=== PATIENT | female | born 1960 | race Caucasian/White ===

== ENCOUNTER 2023-09-16 08:34 | Day surgery (SDC) | payer BC ==
[2023-09-16] VITALS (12 sets, daily range): BP systolic 105–164; BP diastolic 41–78; PULSE 15–81; RESP 14–18; TEMP 98; O2SAT 94–99
[~2023-09-16] VITALS: Ht 157.5 cm; Wt 69.7 kg
[2023-09-16] MEDS ORDERED: ASPI81TA52 PO (09:12)
[2023-09-16] MEDS ORDERED: LOSA50TA64 PO (09:12)
[2023-09-16] MEDS ORDERED: METF-900 PO (09:12)
[2023-09-16] MEDS ORDERED: NAS0.025NS BOTHNARES (09:12)
[2023-09-16] MEDS ORDERED: PROP120C2 PO (09:12)
[2023-09-16] MEDS ORDERED: ALBU18HF2 INH (09:12)
[2023-09-16] MEDS ORDERED: ATOR10TA70 PO (09:12)
[2023-09-16] MEDS ORDERED: LIDOcaine 1% 30ml preserv. free vial ONE (09:53)
[2023-09-16] MEDS ORDERED: fentaNYL/PF 50MCG/1 ML 2ML syringe ONE (09:55)
[2023-09-16] MEDS ORDERED: midazolam 1 mg/ML 2ml injection ONE (09:56)
[2023-09-16] MEDS ORDERED: gelatin sponge, absorbable (Gelfoam 12-7MM) sponge TP ONE (09:59)
[2023-09-16 10:01] LABS: BASOPHILS # (AUTO) 0.1 X10'3 (0-0.2); BASOPHILS % (AUTO) 0.9 % (0-1); EOSINOPHILS # (AUTO) 0.2 X10'3 (0-0.9); HEMATOCRIT 37.1 % (35.0-45.0); HEMOGLOBIN 12.3 g/dl (12.0-16.0); LYMPHOCYTES # (AUTO) 2.5 X10'3 (1.1-4.8); LYMPHOCYTES % (AUTO) 32.3 % (21-51); MEAN CORPUSCULAR HEMOGLOBIN 30.6 PG (27.0-31.0); MEAN CORPUSCULAR HGB CONC 33.2 g/dL (33.0-36.5); MEAN CORPUSCULAR VOLUME 92.1 FL (78-98); MEAN PLATELET VOLUME 8.3 FL (7.4-10.4); MONOCYTES # (AUTO) 0.6 X10'3 (0-0.9); MONOCYTES % (AUTO) 7.5 % (2-12); NEUTROPHILS # (AUTO) 4.4 X10'3 (1.8-7.7); NEUTROPHILS % (AUTO) 56.3 % (42-75); PLATELET COUNT 235 X10'3 (140-440); RED BLOOD COUNT 4.03 X10'6 (4.20-5.60); RED CELL DISTRIBUTION WIDTH 13.5 % (11.5-14.5); WHITE BLOOD COUNT 7.8 X10'3 (4.5-11.0)
[2023-09-16 10:10] LABS: INR 0.9 INR; PROTHROMBIN TIME 10.1 SECONDS (9.0-12.0)
== END 2023-09-16 14:03 | disposition home or self-care (01) ==
LOC: SSTAY O 08:34
PROVIDERS: ATTEND Radiology Vascular & Interventional Radiology
DX: R91.1 Solitary pulmonary nodule (principal); C34.31 Malignant neoplasm of lower lobe, right bronchus or lung; Z79.84 Long term (current) use of oral hypoglycemic drugs; Z79.82 Long term (current) use of aspirin; Z79.899 Other long term (current) drug therapy; Z88.1 Allergy status to other antibiotic agents; Z88.8 Allergy status to other drugs, medicaments and biological substances; Z79.01 Long term (current) use of anticoagulants
CPT/HCPCS: 10009; 32408; 36415; 71045; 85025; 85610; A6258; J2250; J3010; J3490; J7030; 77012; A4615

== ENCOUNTER 2024-01-28 07:53 | Outpatient (CLI) | payer BC ==
[~2024-01-28] VITALS: Ht 157.5 cm; Wt 72.6 kg
[2024-01-28] VITALS (8 sets, daily range): BP systolic 93–113; BP diastolic 38–74; PULSE 67–91; RESP 18–22; O2SAT 95–96
[~2024-01-28 07:53] MED LIST: ALBU18HF2 INH; ASPI81TA52 PO; ATOR10TA70 PO; LOSA50TA64 PO; METF-900 PO; NAS0.025NS BOTHNARES; PROP120C2 PO
[2024-01-28] MEDS ORDERED: iohexol 300mg/ml 100ml inj. ONE (09:33)
[2024-01-28] MEDS ORDERED: normal saline 500ml IV soln 500 ML IV ONE (10:35)
[2024-01-28] MEDS ORDERED: metoprolol tartrate 1mg/ml inj IV PRN (10:35)
[2024-01-28] MEDS ORDERED: nitroGLYCERIN 0.4mg SUBLingual tab SL PRN (10:35)
[2024-01-28] MEDS ORDERED: aminophylline 250mg/10ml inj. IV PRN (10:35)
[2024-01-28] MEDS: regadenoson 0.4mg/5ml syringe IV ONE (11:10)
[2024-01-29] MEDS ORDERED: MESSAGE TO NURSING PO NR (09:40)
== END 2024-01-28 23:59 | disposition home or self-care (01) ==
LOC: RAD 07:53
PROVIDERS: ATTEND Surgery
DX: Z01.818 Encounter for other preprocedural examination (principal); C34.31 Malignant neoplasm of lower lobe, right bronchus or lung; J43.2 Centrilobular emphysema; R91.8 Other nonspecific abnormal finding of lung field; I65.22 Occlusion and stenosis of left carotid artery; R07.9 Chest pain, unspecified
CPT/HCPCS: 71260; 78452; 93017; 94010; A9500; J0280; J2785; J3490; J7040; Q9967

== ENCOUNTER 2024-01-29 06:59 | Inpatient (IN) | payer BC ==
[2024-01-28 09:26] LABS: PRE OP PROTIME 10.3 SECONDS (9.0-12.0)
[2024-01-28 09:28] LABS: ALBUMIN/GLOBULIN RATIO 1.1 (1.1-1.5); ALKALINE PHOSPHATASE 87 IU/L (46-116); BASOPHILS # (AUTO) 0.1 X10'3 (0-0.2); BASOPHILS % (AUTO) 0.9 % (0-1); BLOOD UREA NITROGEN 14 MG/DL (7-18); BUN/CREATININE RATIO 18.4 (10.0-20.0); CALCIUM 9.1 MG/DL (8.5-10.1); CHLORIDE 105 MMOL/L (99-107); CREATININE 0.76 MG/DL (0.40-0.90); EOSINOPHILS # (AUTO) 0.2 X10'3 (0-0.9); EOSINOPHILS % (AUTO) 2.6 % (0-6); LYMPHOCYTES # (AUTO) 2.2 X10'3 (1.1-4.8); LYMPHOCYTES % (AUTO) 30.1 % (21-51); MEAN CORPUSCULAR HEMOGLOBIN 30.4 PG (27.0-31.0); MEAN CORPUSCULAR HGB CONC 33.5 g/dL (33.0-36.5); MEAN CORPUSCULAR VOLUME 90.6 FL (78-98); MEAN PLATELET VOLUME 8.1 FL (7.4-10.4); MONOCYTES # (AUTO) 0.5 X10'3 (0-0.9); MONOCYTES % (AUTO) 6.4 % (2-12); NEUTROPHILS # (AUTO) 4.5 X10'3 (1.8-7.7); PRE OP ALT 30 U/L (30-65); PRE OP ANION GAP 8 (8-16); PRE OP AST 22 U/L (10-37); PRE OP BILIRUB, TOTAL 0.5 MG/DL (0.0-1.0); PRE OP GLUCOSE 139 MG/DL (70-104); PRE OP HEMATOCRIT 39.2 % (35.0-45.0); PRE OP HEMOGLOBIN 13.2 g/dL (12.0-16.0); PRE OP PLATELET COUNT 277 X10'3 (140-440); PRE OP POTASSIUM 4.1 MMOL/L (3.4-5.1); PRE OP SODIUM 141 MMOL/L (135-145); PRE OP WHITE BLOOD COUNT 7.4 10'3 (4.8-10.8); RED BLOOD COUNT 4.33 X10'6 (4.20-5.60); RED CELL DISTRIBUTION WIDTH 13.7 % (11.5-14.5); TOTAL CARBON DIOXIDE 28.4 MMOL/L (24-32); TOTAL PROTEIN 7.5 G/DL (6.4-8.2); eGFR 77 ML/MIN
[2024-01-28 10:56] LABS: BILIRUBIN,URINE NEGATIVE (Neg); CLARITY,URINE SLIGHTLY CLOUDY (Clear); COLOR,URINE YELLOW (Yellow); GLUCOSE, URINE NEGATIVE (Neg); KETONES,URINE NEGATIVE (Neg); LEUKOCYTE ESTERASE ,URINE NEGATIVE (Neg); NITRITES, URINE NEGATIVE (Neg); OCCULT BLOOD,URINE NEGATIVE (Neg); PH,URINE 5.5 (4.8-8.0); PROTEIN,URINE NEGATIVE (Neg); UROBILINOGEN,URINE 0.2 E.U/dL (0.2-1.0)
[2024-01-28 11:02] LABS: UA COLLECTION TYPE CLN CATCH MIDSTREAM
[2024-01-28 11:03] LABS: SQUAMOUS EPITHELIAL CELL,UR MODERATE /LPF (FEW)
[2024-01-28 11:13] LABS: BACTERIA,URINE FEW /HPF (Neg); RBC,URINE 0-2 /HPF (0-2); WBC,URINE 0-4 /HPF (0-4)
[2024-01-28 15:53] LABS: HEMOGLOBIN A1C 6.9 % (4.5-6.2)
[2024-01-29] VITALS (20 sets, daily range): BP systolic 100–152; BP diastolic 54–90; PULSE 64–78; RESP 12–18; TEMP 98; O2SAT 95–100
[~2024-01-29] VITALS: Ht 157.5 cm; Wt 70.7 kg
[2024-01-29] MEDS: ringers solution, lacted 1,000 ML IV SCH ×2 (05:30→15:04)
[2024-01-29] MEDS: DOCUMENT DATE & TIME OF BETA-BLOCKER PO ONE (05:30)
[2024-01-29] MEDS: cefazolin 2gm/D5W 100mL 100 ML IV ONE (05:30)
[2024-01-29] MEDS: famotidine 20mg tablet PO ONE (05:30)
[2024-01-29] MEDS ORDERED: albuterol 2.5 MG/3 ML nebule NEB PRN (08:00)
[2024-01-29] MEDS ORDERED: sevoflurane 250ml liquid IH ONE (10:15)
[2024-01-29] MEDS ORDERED: fentaNYL/PF 50MCG/1 ML 2ML syringe ONE ×2 (10:15→12:46)
[2024-01-29] MEDS ORDERED: MIDAZolam 1 MG/ML 5ML VIAL ONE (10:17)
[2024-01-29] MEDS ORDERED: rocuronium 10mg/ml inj IV ONE ×2 (10:55)
[2024-01-29] MEDS ORDERED: propofol inj 20 ML IV ONE (10:55)
[2024-01-29] MEDS ORDERED: LIDOcaine 2% (20mg/ml) 5ml vial ONE (10:55)
[2024-01-29] MEDS ORDERED: ondansetron/PF 4mg/2ml inj ONE (10:56)
[2024-01-29] MEDS ORDERED: labetalol 20mg/4ml (5mg/ml) syringe IV ONE ×2 (10:57→12:27)
[2024-01-29] MEDS ORDERED: acetaminophen 1,000mg/100ml IV 100 ML IV ONE (10:59)
[2024-01-29] MEDS ORDERED: morphine 4 MG/ML inj SYRINge IV PRN ×2 (11:20→15:10)
[2024-01-29] MEDS ORDERED: fentaNYL/PF 50MCG/1 ML 2ML syringe IV PRN (11:20)
[2024-01-29] MEDS ORDERED: hydrALAZINE 20mg/ml inj. IV PRN (11:20)
[2024-01-29] MEDS ORDERED: ondansetron/PF 4mg/2ml inj IV PRN (11:20)
[2024-01-29] MEDS ORDERED: labetalol 20mg/4ml (5mg/ml) syringe IV PRN (11:20)
[2024-01-29] MEDS: BUPIVACAINE liposomal/PF 13.3 MG/ML vial IM ONE (14:00)
[2024-01-29] MEDS: BUPIVAcaine 2.5mg/ml inj 50ml vial (contains preservative) ONE (14:00)
[2024-01-29] MEDS ORDERED: sugammadex 200mg/2ml injection IV ONE (14:01)
[2024-01-29 15:00] LABS: ABG BASE EXCESS -1.8 mmol/L (-2.0-2.0); ABG HCO3 23.6 mmol/L (22.0-26.0); ABG OXYGEN SATURATION 98.8 % (94-97); ABG PH (T) 7.358 (7.350-7.450); ABG PO2 (T) 180.5 mmHg (75.0-100.0); FCOHb 1.4 % (0.0-3.9); FHHb 1.2 % (0.0-5.0); FLOW 8 L/min; FMetHb 0.3 % (0.0-1.5); FO2Hb 97.1 % (94-97); MODE MASK - SIMPLE
[2024-01-29] MEDS: morphine 2 MG/ML inj. syringe IV PRN (15:07)
[2024-01-29] MEDS ORDERED: HYDROcodone/acetaminophen 10/325mg tab PO PRN (15:10)
[2024-01-29] MEDS ORDERED: metoclopramide 5 mg/ml inj IV PRN (15:10)
[2024-01-29] MEDS ORDERED: morphine 2 MG/ML inj. syringe IV PRN (15:10)
[2024-01-29] MEDS: fentaNYL/PF 50MCG/1 ML 2ML syringe IV PRN (15:45)
[2024-01-29] MEDS: ceFAZolin inj. 1,000 MG in dextrose 5%-water 50ml 50 ML IV SCH (15:47)
[2024-01-29] MEDS: HYDROcodone/acetaminophen 10/325mg tab PO PRN (15:55)
[2024-01-29] MEDS: HYDROmorphone inj. 0.5 MG/0.5 ML DISP.SYRIN IV PRN (16:59)
[2024-01-29] MEDS: potassium Cl 20mEq in D5-NS 1,000 ML IV SCH (17:47)
[2024-01-29] MEDS ORDERED: DEXTROSE 15 GM of carb/4 tabs (each vial/BOTTLE has 4 tablets) PO PRN ×2 (19:00)
[2024-01-29] MEDS ORDERED: insulin Lispro (HumaLOG) vial - multi-dose SQ SCH (19:00)
[2024-01-29] MEDS ORDERED: glucagon, human recombinant 1mg kit SUBCUT PRN (19:00)
[2024-01-29] MEDS ORDERED: naloxone 0.4 mg/ml inj IV PRN (19:00)
[2024-01-29] MEDS ORDERED: PCA WASTE DOCUMENTATION 1 MG ML MC PRN (19:00)
[2024-01-29] MEDS ORDERED: dextrose 50%-water 50ml dispensing syringe IV PRN ×2 (19:00)
[2024-01-29] MEDS: MESSAGE TO PHARMACY PO ONE (19:13)
[2024-01-29] MEDS: gabapentin 300mg capsule PO SCH (20:28)
[2024-01-29] MEDS: HYDROmorph/NS 0.2 mg/ml PCA 100 ML IV SCH (20:31)
[2024-01-29] MEDS: ketorolac trometh. 30mg/ml inj. IV SCH (21:12)
[2024-01-29] MEDS: INSULIN LISPRO 100 UNIT/ML INSULN.PEN MULTI-DOSE SQ SCH (21:20)
[2024-01-29] MEDS: insulin glargine (Lantus) pen - multi-dose SQ SCH (21:21)
[2024-01-30] VITALS (22 sets, daily range): BP systolic 92–122; BP diastolic 44–68; PULSE 65–89; RESP 11–22; TEMP 97.4–98.3; O2SAT 94–100
[2024-01-30] MEDS: ondansetron/PF 4mg/2ml inj IV PRN (12:45)
[2024-01-30 13:46] LABS: BASOPHILS # (AUTO) 0.1 X10'3 (0-0.2); BASOPHILS % (AUTO) 0.4 % (0-1); EOSINOPHILS # (AUTO) 0.1 X10'3 (0-0.9); EOSINOPHILS % (AUTO) 0.6 % (0-6); HEMATOCRIT 32.8 % (35.0-45.0); LYMPHOCYTES % (AUTO) 12.8 % (21-51); MEAN CORPUSCULAR HEMOGLOBIN 30.6 PG (27.0-31.0); MEAN CORPUSCULAR HGB CONC 33.5 g/dL (33.0-36.5); MEAN CORPUSCULAR VOLUME 91.2 FL (78-98); MONOCYTES % (AUTO) 6.7 % (2-12); NEUTROPHILS # (AUTO) 12.1 X10'3 (1.8-7.7); NEUTROPHILS % (AUTO) 79.5 % (42-75); PLATELET COUNT 206 X10'3 (140-440); RED CELL DISTRIBUTION WIDTH 13.2 % (11.5-14.5); WHITE BLOOD COUNT 15.2 X10'3 (4.5-11.0)
[2024-01-30 13:56] LABS: ALANINE AMINOTRANSFERASE 23 U/L (12-78); ALBUMIN 3.1 G/DL (3.4-5.0); ALKALINE PHOSPHATASE 65 IU/L (46-116); ANION GAP 7 (8-16); ASPARTATE AMINO TRANSFERASE 21 U/L (10-37); BILIRUBIN,TOTAL 0.4 MG/DL (0.1-1.0); BLOOD UREA NITROGEN 9 MG/DL (7-18); BUN/CREATININE RATIO 12.7 (10.0-20.0); CALCIUM 8.1 MG/DL (8.5-10.1); CHLORIDE 103 MMOL/L (99-107); CREATININE 0.71 MG/DL (0.40-0.90); GLUCOSE 140 MG/DL (70-104); MAGNESIUM 1.8 MG/DL (1.5-2.4); PHOSPHORUS 2.6 MG/DL (2.3-4.5); SODIUM 137 MMOL/L (135-145); TOTAL CARBON DIOXIDE 26.6 MMOL/L (24-32); TOTAL PROTEIN 6.3 G/DL (6.4-8.2); eCRCL 66 ML/MIN; eGFR 84 ML/MIN
[2024-01-31] VITALS (7 sets, daily range): BP systolic 98–146; BP diastolic 42–75; PULSE 76–88; RESP 16–18; TEMP 97.4–99.8; O2SAT 95–98
[2024-01-31 05:49] LABS: BASOPHILS % (AUTO) 0.4 % (0-1); EOSINOPHILS # (AUTO) 0.1 X10'3 (0-0.9); EOSINOPHILS % (AUTO) 1.6 % (0-6); HEMATOCRIT 30.1 % (35.0-45.0); HEMOGLOBIN 10.1 g/dl (12.0-16.0); LYMPHOCYTES # (AUTO) 1.8 X10'3 (1.1-4.8); LYMPHOCYTES % (AUTO) 20.5 % (21-51); MEAN CORPUSCULAR HEMOGLOBIN 30.9 PG (27.0-31.0); MEAN CORPUSCULAR HGB CONC 33.5 g/dL (33.0-36.5); MEAN CORPUSCULAR VOLUME 92.2 FL (78-98); MEAN PLATELET VOLUME 8.3 FL (7.4-10.4); MONOCYTES # (AUTO) 0.8 X10'3 (0-0.9); MONOCYTES % (AUTO) 8.6 % (2-12); NEUTROPHILS # (AUTO) 6.1 X10'3 (1.8-7.7); NEUTROPHILS % (AUTO) 68.9 % (42-75); PLATELET COUNT 198 X10'3 (140-440); RED BLOOD COUNT 3.26 X10'6 (4.20-5.60); RED CELL DISTRIBUTION WIDTH 13.7 % (11.5-14.5); WHITE BLOOD COUNT 8.8 X10'3 (4.5-11.0)
[2024-01-31 05:51] LABS: ALANINE AMINOTRANSFERASE 12 U/L (12-78); ALBUMIN 2.8 G/DL (3.4-5.0); ALBUMIN/GLOBULIN RATIO 0.9 (1.1-1.5); ALKALINE PHOSPHATASE 71 IU/L (46-116); ANION GAP 5 (8-16); ASPARTATE AMINO TRANSFERASE 21 U/L (10-37); BILIRUBIN,TOTAL 0.3 MG/DL (0.1-1.0); BLOOD UREA NITROGEN 5 MG/DL (7-18); BUN/CREATININE RATIO 6.6 (10.0-20.0); CHLORIDE 106 MMOL/L (99-107); CREATININE 0.76 MG/DL (0.40-0.90); GLUCOSE 219 MG/DL (70-104); MAGNESIUM 1.9 MG/DL (1.5-2.4); PHOSPHORUS 1.8 MG/DL (2.3-4.5); POTASSIUM 4.1 MMOL/L (3.5-5.1); SODIUM 138 MMOL/L (135-145); TOTAL CARBON DIOXIDE 26.7 MMOL/L (24-32); eCRCL 61 ML/MIN; eGFR 77 ML/MIN
[2024-01-31] MEDS: docusate sod 100mg capsule PO SCH (07:29)
[2024-01-31] MEDS: Neutra Phos packet PO SCH (13:06)
[2024-01-31] MEDS: HYDROcodone/acetaminophen 5mg/325mg tablet PO PRN (15:37)
[2024-02-01] VITALS (10 sets, daily range): BP systolic 99–172; BP diastolic 45–86; PULSE 72–91; RESP 14–24; TEMP 97.4–98.9; O2SAT 93–99
[2024-02-01 06:26] LABS: ABG BASE EXCESS -0.3 mmol/L (-2.0-2.0); ABG HCO3 23.4 mmol/L (22.0-26.0); ABG OXYGEN SATURATION 96.2 % (94-97); ABG PCO2 (T) 35.4 mmHg (32.0-45.0); ABG PH (T) 7.438 (7.350-7.450); ABG PO2 (T) 79.7 mmHg (75.0-100.0); ALLEN'S TEST POSITIVE; FCOHb 2.5 % (0.0-3.9); FHHb 3.7 % (0.0-5.0); FMetHb 0.3 % (0.0-1.5); FO2Hb 93.5 % (94-97); MODE RA; TOTAL HEMOGLOBIN 13.7 G/dl (12.0-16.0)
[2024-02-01 06:47] LABS: BASOPHILS # (AUTO) 0.1 X10'3 (0-0.2); BASOPHILS % (AUTO) 0.7 % (0-1); EOSINOPHILS # (AUTO) 0.3 X10'3 (0-0.9); EOSINOPHILS % (AUTO) 3.6 % (0-6); HEMATOCRIT 27.2 % (35.0-45.0); HEMOGLOBIN 9.2 g/dl (12.0-16.0); LYMPHOCYTES % (AUTO) 28.4 % (21-51); MEAN CORPUSCULAR HGB CONC 33.8 g/dL (33.0-36.5); MEAN CORPUSCULAR VOLUME 91.7 FL (78-98); MEAN PLATELET VOLUME 8.5 FL (7.4-10.4); MONOCYTES # (AUTO) 0.7 X10'3 (0-0.9); MONOCYTES % (AUTO) 10.1 % (2-12); NEUTROPHILS % (AUTO) 57.2 % (42-75); PLATELET COUNT 187 X10'3 (140-440); RED BLOOD COUNT 2.96 X10'6 (4.20-5.60); RED CELL DISTRIBUTION WIDTH 13.7 % (11.5-14.5); WHITE BLOOD COUNT 7.1 X10'3 (4.5-11.0)
[2024-02-01 07:24] LABS: ALANINE AMINOTRANSFERASE 20 U/L (12-78); ALBUMIN 2.4 G/DL (3.4-5.0); ALBUMIN/GLOBULIN RATIO 0.7 (1.1-1.5); ALKALINE PHOSPHATASE 71 IU/L (46-116); ANION GAP 8 (8-16); ASPARTATE AMINO TRANSFERASE 21 U/L (10-37); BILIRUBIN,TOTAL 0.4 MG/DL (0.1-1.0); BLOOD UREA NITROGEN 5 MG/DL (7-18); BUN/CREATININE RATIO 9.8 (10.0-20.0); CALCIUM 7.6 MG/DL (8.5-10.1); CHLORIDE 109 MMOL/L (99-107); CREATININE 0.51 MG/DL (0.40-0.90); GLUCOSE 153 MG/DL (70-104); PHOSPHORUS 2.6 MG/DL (2.3-4.5); POTASSIUM 4.1 MMOL/L (3.5-5.1); SODIUM 143 MMOL/L (135-145); TOTAL CARBON DIOXIDE 25.8 MMOL/L (24-32); TOTAL PROTEIN 5.7 G/DL (6.4-8.2); eCRCL 92 ML/MIN; eGFR > 90 ML/MIN
[2024-02-01] MEDS: albuterol 2.5 MG/3 ML nebule NEB PRN (15:24)
[2024-02-01] MEDS: enoxaparin 40mg/0.4ml syringe SUBCUT SCH (20:10)
[2024-02-02 02:00] VITALS: BP 134/66; PULSE 81; RESP 16; TEMP 97.3; O2SAT 95
[2024-02-02 07:00] VITALS: BP 113/60; PULSE 79; RESP 17; TEMP 97.4; O2SAT 92
[2024-02-02 07:48] VITALS: PULSE 63; RESP 16; O2SAT 96
[2024-02-02 08:00] VITALS: RESP 18; O2SAT 98
[2024-02-02 11:00] VITALS: BP 141/73; PULSE 69; RESP 21; TEMP 97.2; O2SAT 95
== END 2024-02-02 12:40 | disposition home or self-care (01) | DRG 165 ==
LOC: PAS IN 06:59 → UNDOADMIN 06:59 → PAS IN 15:14 → ICU 2S 16:44 → PAS IN 16:44 → ICU 2S 01-30 16:19 → PCU 3S 01-30 16:19
PROVIDERS: ADMIT Surgery; ATTEND Surgery
PROC: BW241ZZ Computerized Tomography (CT Scan) of Chest and Abdomen using Low Osmolar Contrast (ICD-10-PCS; 2024-01-28)
PROC: 8E0X4CZ Robotic Assisted Procedure of Upper Extremity, Percutaneous Endoscopic Approach (ICD-10-PCS; 2024-01-29)
PROC: 0BBF4ZZ Excision of Right Lower Lung Lobe, Percutaneous Endoscopic Approach (ICD-10-PCS; principal; 2024-01-29 10:15)
DX: C34.31 Malignant neoplasm of lower lobe, right bronchus or lung (principal); Z79.899 Other long term (current) drug therapy
CPT/HCPCS: Z7506; Z7508; 36415; 36600; 71045; 80053; 81001; 82803; 82948; 83036; 83735; 84100; 85018; 85025; 85610; 85730; 86885; 86900; 86901; 87081; 93005; 94640; 94760; 97116; 97161; 97530; A4615; A4618; A6258; A6402; A6449; A7000; A7048; C9290; G0378; J0131; J0690; J1100; J1170; J1650; J1815; J1885; J2250; J2270; J2405; J2704; J3010; J3480; J3490; J7030; J7060; J7120